=== PATIENT | female | born 2000 | race Caucasian/White ===

== ENCOUNTER 2024-01-03 00:06 | Emergency (ER) | payer SELFPAY ==
[~2024-01-03] VITALS: Ht 167.6 cm; Wt 85.9 kg
[2024-01-03 00:14] VITALS: TEMP 97.7
[2024-01-03 01:13] LABS: BASO # 0.1 K/mm3 (0.0-0.2); BASO % 0.6 % (0.0-2.0); EOS # 0.1 K/mm3 (0.0-0.7); EOS % 0.7 % (0.0-4.0); GRAN # 6.9 K/mm3 (1.4-6.5); GRAN % 65.6 % (42.2-75.2); HEMOGLOBIN 10.2 g/dl (12.5-16.0); LYMPH # 2.8 K/mm3 (1.2-3.4); LYMPH % 26.4 % (20.0-51.0); MEAN CELL VOLUME 84 fl (80.0-100.0); MEAN CORPUSCULAR HEMOGLOBIN 27 pg (27-31); MEAN CORPUSCULAR HGB CONC 32 g/dl (33.0-37.0); MEAN PLATELET VOLUME 11.1 fl (7.4-10.4); MONO # 0.6 K/mm3 (0.1-0.6); MONO % 6.1 % (1.7-9.3); PLATELET COUNT 284 K/mm3 (130-400); RED BLOOD COUNT 3.83 M/mm3 (4.10-5.30); REDCELL DISTRIBUTION WIDTH-CV 15.9 % (11.5-14.5)
[2024-01-03] MEDS ORDERED: NS 50 ML IV SCH (01:18)
[2024-01-03] MEDS ORDERED: Iohexol 350 - 100 ML VIAL IV ONE (01:18)
[2024-01-03 01:25] LABS: PROTHROMBIN TIME 10.8 SECONDS (9.7-12.8)
[2024-01-03 01:29] LABS: ALANINE AMINOTRANSFERASE 10 U/L (0-55); ALBUMIN 2.5 g/dL (3.5-5.0); ALKALINE PHOSPHATASE 110 U/L (40-150); ANION GAP 10 mmol/L (7-16); AST,SGOT 17 U/L (5-34); BILIRUBIN,TOTAL 0.2 mg/dL (0.2-1.2); CALCIUM 8.2 mg/dL (8.4-10.2); CHLORIDE 111 mEq/L (98-107); GLUCOSE 118 mg/dL (70-99); POTASSIUM 3.4 mEq/L (3.5-4.5); SODIUM 138 mEq/L (136-145); TOTAL PROTEIN 6.2 g/dl (6.2-8.1)
[2024-01-03 01:37] LABS: BLOOD UREA NITROGEN < 5 mg/dL (7-19); TROPONIN-I < 0.010 ng/mL (0.00-0.033)
[2024-01-03 02:05] LABS: PH 6.5 (5.0-8.5); URINE APPEARANCE Clear (CLEAR/HAZY); URINE COLOR YELLOW (YELLOW); URINE GLUCOSE Negative (NEGATIVE); URINE KETONE 1+ (NEGATIVE); URINE PROTEIN(semi-quant) Negative (NEGATIVE)
[2024-01-03 02:06] LABS: URINE BLOOD Negative (NEGATIVE); URINE NITRATE Negative (NEGATIVE); URINE UROBILINOGEN 0.2 E.U/dL (0.2-1.0)
[2024-01-03 02:07] LABS: COLLECTION METHOD CLEAN CATCH
[2024-01-03 02:35] VITALS: BP 129/87; PULSE 92
== END 2024-01-03 02:35 | disposition home or self-care (01) ==
LOC: COL.ER 00:06
PROVIDERS: Emergency Medicine
DX: O99.891 Other specified diseases and conditions complicating pregnancy (principal); R07.89 Other chest pain; Z3A.24 24 weeks gestation of pregnancy
CPT/HCPCS: Q9967

== ENCOUNTER 2024-02-21 23:48 | Outpatient (CLI) | payer OTHER ==
[~2024-02-21] VITALS: Ht 167.6 cm; Wt 88.6 kg
--- NOTE | 2024-02-22 | NUR ---
G2L1 at 31 weeks and 6 days arrives to unit with complaint of high blood pressure at home. Pt states she has had a headache today that did not get better with tylenol but she also has a history of migraines. Pt denies RUQ pain or changes in her vision. Pt reports good movement, denies contractions, or vaginal bleeding. US and toco explained and applied. Admission assessment started. Vitals obtained. Tachycardia noted at 136 bpm. Pt reports she has had tachycardia in and has seen a bunch trimmer mold. She reports currently feeling short of breath and that typically happens to her when she is experiencing the tachycardia. Continuous pulse ox applied.
[2024-02-22 00:05] VITALS: BP 122/65; PULSE 136; TEMP 98.2
--- NOTE | 2024-02-22 00:05 | NUR ---
Dr. Gallardo called unit prior to patients arrival and gave telephone orders to obtain serial blood pressures, CBC, CMP, UPC, and troponin.
[2024-02-22] MEDS ORDERED: LR 1,000 ML IV PRN (00:15)
[2024-02-22 00:25] VITALS: BP 120/79; PULSE 126
[2024-02-22] MEDS ORDERED: PEPCID40 MG PO (00:25)
[2024-02-22] MEDS ORDERED: PRENATAL (00:25)
[2024-02-22] MEDS ORDERED: ASPIRIN 81M81 MG/TA2 PO (00:26)
[2024-02-22] MEDS ORDERED: TYLENOL 500MG500 MG PO (00:27)
[2024-02-22 00:31] LABS: HEMOGLOBIN 12.1 g/dl (12.5-16.0); MEAN CELL VOLUME 81 fl (80.0-100.0); MEAN CORPUSCULAR HEMOGLOBIN 27 pg (27-31); MEAN CORPUSCULAR HGB CONC 33 g/dl (33.0-37.0); MEAN PLATELET VOLUME 10.9 fl (7.4-10.4); PLATELET COUNT 250 K/mm3 (130-400); RED BLOOD COUNT 4.55 M/mm3 (4.10-5.30)
[2024-02-22 00:40] VITALS: BP 116/75; PULSE 131
[2024-02-22 00:40] LABS: HEMATOCRIT 36.8 % (37.0-47.0)
[2024-02-22 00:47] LABS: ALANINE AMINOTRANSFERASE 10 U/L (0-55); ALBUMIN 2.6 g/dL (3.5-5.0); ALKALINE PHOSPHATASE 178 U/L (40-150); ANION GAP 12 mmol/L (7-16); AST,SGOT 17 U/L (5-34); BILIRUBIN,TOTAL 0.2 mg/dL (0.2-1.2); CALCIUM 8.9 mg/dL (8.4-10.2); CHLORIDE 108 mEq/L (98-107); CREATININE, serum 0.63 mg/dL (0.57-1.11); GLUCOSE 126 mg/dL (70-99); POTASSIUM 3.6 mEq/L (3.5-4.5); SODIUM 137 mEq/L (136-145); TOTAL PROTEIN 6.5 g/dl (6.2-8.1)
[2024-02-22 00:55] VITALS: BP 124/81; PULSE 118
[2024-02-22 00:57] LABS: BLOOD UREA NITROGEN < 5 mg/dL (7-19); TROPONIN-I < 0.010 ng/mL (0.00-0.033)
--- NOTE | 2024-02-22 01:20 | NUR ---
Discharge instructions reviewed with patient. Highly recommend patient goes to the ER to evaluated there for the tachycardia and shortness of breath. Pt verbalizes understanding. Pt ambulatory off unit accompanied by Rachelle.
[2024-02-22 01:45] LABS: LYMPHOCYTE 23 % (20.0-51.0); NEUTROPHILS 73 % (42.0-75.2); PLATELET ESTIMATE NORMAL (NORMAL)
== END 2024-02-22 01:20 | disposition home or self-care (01) ==
LOC: LDRO 23:48 → LDR 23:58 → LDRO 02-22 01:20
PROVIDERS: Obstetrics & Gynecology
DX: O16.3 Unspecified maternal hypertension, third trimester (principal); Z3A.31 31 weeks gestation of pregnancy
CPT/HCPCS: OP

== ENCOUNTER 2024-03-25 21:23 | Outpatient (CLI) | payer OTHER ==
[~2024-03-25] VITALS: Ht 167.6 cm; Wt 90.9 kg
[~2024-03-25 21:23] MED LIST: ASPIRIN 81M81 MG/TA2 PO; PEPCID40 MG PO; PRENATAL; TYLENOL 500MG500 MG PO
[2024-03-25] MEDS ORDERED: LR 1,000 ML IV PRN (21:30)
--- NOTE | 2024-03-25 21:35 | NUR ---
2135 G2L1 36 WEEK GEST TO LR2 WITH C/O RIGHT SIDE LOWER BACK PAIN COMING AND GOING. UTERUS PALPATED WITH C/O PAIN AND PALPATES SOFT. BABY ACTIVE. EFM ON. SVE /HIGH. NEG AMNIOTRACE. MANY COMPLAINTS. FEELS LOTS OF PELVIC PRESSURE. FEELS LIKE SHES PEEING ALL TIME. HAD LABS DONE IN OFFICE TWO DAYS AGO. STATES FEEL VERY SHAKY. STATES HAS BLURRY VISON AND SOMETIME VISION GOES BLACK. HAS BEEN HAVING THESE ISSUES FOR AWHILE DURING THIS . ADM ASSESSMENT COMPLETED.
[2024-03-25 21:40] VITALS: BP 134/81; PULSE 104; TEMP 98.2
[2024-03-25 22:05] VITALS: BP 128/71; PULSE 96
--- NOTE | 2024-03-25 22:20 | NUR ---
2220 TYLENOL ES AND BENADRYL GIVEN PER DRS ORDERS. CONTINUES TO COMPLAIN OF ALL PREVIOUS COMPLAINTS BUT PLAYS ON PHONE WHEN THIS RN OUT OF ROOM.
[2024-03-25] MEDS ORDERED: Acetaminophen 500 MG TAB PO ONE (22:30)
[2024-03-25] MEDS ORDERED: diphenhydrAMINE 25 MG CAP PO ONE (22:30)
--- NOTE | 2024-03-25 22:45 | NUR ---
2245 BACK PAIN REMAINS. IRRITABLE UTERUS WITH SHORT, CLOSE COMPLAINTS OF PAIN. ALWAYS PALPATES MILD. DISMISS INSTRUCTIONS GIVEN. INSTRUCTED NOT TO DRIVE IF VISION IS BLURRY AND BLACKS OUT. STATES ONLY DRIVES TO [employer] FROM WORK. 2300 HOME WITH INSTRUCTIONS.
== END 2024-03-25 23:00 | disposition home or self-care (01) ==
LOC: LDRO 21:23
DX: O26.893 Other specified pregnancy related conditions, third trimester (principal); M54.9 Dorsalgia, unspecified; Z3A.36 36 weeks gestation of pregnancy